=== PATIENT | female | born 1990 | race Caucasian/White ===

== ENCOUNTER 2016-09-05 20:55 | Emergency (ER) | payer SELFPAY ==
[~2016-09-05] VITALS: Ht 177.8 cm; Wt 165.0 kg
[~2016-09-05 20:55] MED LIST: TRAM50 PO; VITA10002 PO; VITA500015 PO
[2016-09-05 20:59] VITALS: BP 162/102; PULSE 95; RESP 18; TEMP 99.2; O2SAT 98
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
[2016-09-05 23:02] VITALS: BP 127/78; PULSE 88; RESP 20; O2SAT 98
[2016-09-05] MEDS ORDERED: IBUP800T23 PO (23:12)
[2016-09-05] MEDS ORDERED: ROBA500T PO (23:12)
[2016-09-05] MEDS ORDERED: TRAM50TA PO (23:12)
[2016-09-05] MEDS ORDERED: CYCLOBENZAPRINE HCL 10 MG TAB PO ONE (23:30)
[2016-09-05] MEDS ORDERED: IBUPROFEN 800 MG TAB PO ONE (23:30)
[2016-09-05 23:49] LABS: BLOOD, URINE NEG (NEG); CALCIUM OXALATE CRYSTALS,URINE RARE /hpf; COMMENT (UR) CULT NOT INDICATED; CULTURE IF INDICATED CULT NOT INDICATED; GLUCOSE,URINE NEG (NEG); KETONE, URINE NEG (NEG); MUCUS URINE FEW /lpf (OCC); NITRITE,URINE NEG (NEG); SQUAMOUS EPITHELIAL CELL URINE <1 /hpf (0-5); URINE COLOR YELLOW (YELLW/STRAW)
--- NOTE | 2016-09-06 01:05 | PD ---
Physical Exam Narrative I, Dr. Hernandez, have reviewed the advance practice practitioner's documentation and am in agreement, met with the patient face to face, made the diagnosis, and the medical decision making was done by me. *My assessment and Findings: Musculoskeletal pain vs. UTI 26yo obese female with left sided abdominal pain and suprapubic pain after minion ride 3 days ago. States the bar restraint caused her pain. Denies any fever, n/v. Pt is on her menstrual period. UA showed 4 RBC. No leukocyte or nitrite. Bedside FAST negative. Pt given ibuprofen and flexeril and reevaluated at bedside. States pain has improved. Bedside FAST negative. Pain is very musculoskeletal. Return precautions given. Data Data Last Documented VS Vital Signs Date Time Temp Pulse Resp B/P Pulse Ox O2 Delivery O2 Flow Rate FiO2 09/06/16 01:15 92 20 137/81 98 09/05/16 23:02 Room Air 09/05/16 20:59 99.2 Orders Urinalysis - C+S If Indicated (09/05/16 22:58) Ibuprofen (Motrin) (09/05/16 23:30) Cyclobenzaprine (Flexeril) (09/05/16 23:30) Ed Poc Ultrasound (09/06/16 ) Labs Laboratory Tests Test 09/05/16 23:20 Urine Color YELLOW Urine Turbidity CLEAR Urine pH 5.0 Urine Specific [place] 1.025 Urine Protein NEG mg/dL Urine Glucose (UA) NEG mg/dL Urine Ketones NEG mg/dL Urine Occult Blood NEG Urine Nitrite NEG Urine Bilirubin NEG Urine Urobilinogen LESS THAN 2.0 MG/DL Urine Leukocyte Esterase NEG Urine RBC 4 /hpf Urine WBC 3 /hpf Urine Squamous Epithelial <1 /hpf Cells Urine Calcium Oxalate Crystals RARE /hpf Urine Mucus FEW /lpf Microscopic Urinalysis Comment CULT NOT INDICATED MDM Supervised Visit with JUS: Yes Procedures Procedure Narrative Emergency department FAST was performed with patient consent. The curvilinear probe was used in the right upper quadrant/Morison's pouch, suprapubic, left upper quadrant/spleenorenal space, epigastric, parasternal long axis. There was no evidence of peritoneal free fluid, or pericardial effusion. Diagnosis Primary Impression: Abdominal wall pain in left lower quadrant Referrals: [facility] Patient Instructions: General Instructions, Abdominal Pain (ED), Musculoskeletal Pain (ED) Departure Forms: Work Release, Enter return to work date: Tests/Procedures Additional Instruction: Rest, hydrate. New Return to normal, gentle activities as tolerated. Take medications as prescribed, as needed. Do not drive while taking muscle relaxants or narcotic pain medications. Return for worsening of symptoms, otherwise follow up with the [facility] as discussed. Return to ED for any urgent or emergent medical condition. Scripts Methocarbamol (Robaxin)500 Mg [id number] Mg PO TID #15 TAB Ref 0 Prov:Eleni Hernandez DO 09/05/16 Tramadol 50 Mg Tab50 Mg PO Q8H PRN (PAIN GREATER THAN 6) #12 TAB Ref 0 Prov:Eleni Hernandez DO 09/05/16 Ibuprofen 800 Mg [id number] Mg PO Q8H PRN (Pain/Inflammation) #20 TAB Ref 0 Prov:Eleni Hernandez DO 09/05/16 Disposition: 01 DISCHARGE HOME Condition: Stable Eleni Hernandez DO Sep 06, 2016 01:05
[2016-09-06 01:15] VITALS: BP 137/81
== END 2016-09-06 01:17 | disposition home or self-care (01) ==
LOC: NEPD 20:55
DX: R10.32 Left lower quadrant pain (principal); X58.XXXA Exposure to other specified factors, initial encounter; Y93.I1 Activity, roller coaster riding; Y92.89 Other specified places as the place of occurrence of the external cause; Y99.8 Other external cause status
CPT/HCPCS: 81001; 99284

== ENCOUNTER 2016-10-21 23:49 | Emergency (ER) | payer SELFPAY ==
[~2016-10-21] VITALS: Ht 177.8 cm; Wt 176.7 kg
[~2016-10-21 23:49] MED LIST changes: +IBUP800T23 PO; +ROBA500T PO; -TRAM50 PO; +TRAM50TA PO; -VITA10002 PO; -VITA500015 PO
[2016-10-21 23:57] VITALS: BP 137/87; PULSE 106; RESP 12; TEMP 98.6; O2SAT 95
[2016-10-22] MEDS ORDERED: oxyCODONE/ACETAMINOPHEN 5 MG/325 MG TAB PO ONE (02:15)
[2016-10-22] MEDS ORDERED: LIDOCAINE HCL 1% 50 ML VIAL INFIL ONE (02:15)
[2016-10-22 02:30] VITALS: BP 131/85; PULSE 92; RESP 18; O2SAT 98
[2016-10-22] MEDS ORDERED: CEPH-460 PO (03:05)
--- NOTE | 2016-10-22 03:05 | PD ---
HPI Chief Complaint: heel swelling Time Seen by Provider: 01:57 Travel History International Travel<30 days: No Contact w/Intl Traveler<30days: No Traveled to known affect area: No History of Present Illness HPI Patient is a 26-year-old female who comes in complaining of a painful swelling to her right heel. She says that she noticed a bite to her ankle a few days ago , she went to an outside hospital yesterday. She was prescribed Bactrim, but did not get it filled until tonight. She has not taken any of the antibiotic yet. She says she feels like it has in getting worse. She denies fever or chills. She noticed some clear drainage from the area today. PFSH Past Medical History Diminished Hearing: No Gastrointestinal Disorders: Yes (PT STATES "UNDIAGNOSED ABD ISSUES") Immunizations Current: Yes Past Surgical History Tonsillectomy: Yes (WITH UVULA) Other Surgery: Yes (UVULA) Social History Alcohol Use: Yes (OCC) Tobacco Use: Yes Substance Use: Yes (MARIJUANA) Allergies-Medications (Allergen,Severity, Reaction): Coded Allergies: Seafood (Verified Allergy, Severe, HIVES, 10/22/16) Reported Meds & Prescriptions Reported Meds & Active Scripts Active Keflex (Cephalexin) 500 Mg Cap 500 Mg PO Q6H 7 Days Tramadol (Tramadol HCl) 50 Mg Tab 50 Mg PO Q8H PRN Review of Systems General / Constitutional: No: Fever, Chills HENT: No: Headaches, Lightheadedness Cardiovascular: No: Chest Pain or Discomfort Respiratory: No: Shortness of Breath Gastrointestinal: No: Nausea Genitourinary: No: Dysuria Musculoskeletal: Positive: Pain Skin: Positive Lesions, No Rash Neurologic: No: Weakness, Dizziness Physical Exam Narrative GENERAL: Awake and alert, in no acute distress. SKIN: Focused skin assessment warm/dry. Abscess to the right heel, with surrounding erythema, small amount of fluctuance. HEAD: Atraumatic. Normocephalic. EYES: Pupils equal and round. No scleral icterus. ENT: Mucous membranes pink and moist. NECK: Trachea midline. No JVD. CARDIOVASCULAR: Regular rate and rhythm. No murmur appreciated. RESPIRATORY: No accessory muscle use. Clear to auscultation. Breath sounds equal bilaterally. MUSCULOSKELETAL: No obvious deformities. No clubbing. No cyanosis. Edema of both feet. NEUROLOGICAL: Awake and alert. No obvious cranial nerve deficits. Motor grossly within normal limits. Normal speech. Data Data Last Documented VS Vital Signs Date Time Temp Pulse Resp B/P Pulse Ox O2 Delivery O2 Flow Rate FiO2 10/22/16 03:23 92 18 10/22/16 02:30 131/85 98 10/21/16 23:57 98.6 Orders Oxycodone-Acetamin 5-325 Mg (Percocet (10/22/16 02:15) Lidocaine 1% Inj (50 Ml) (Xylocaine 1% I (10/22/16 02:15) [facility] Medical Decision Making Medical Screen Exam Complete: Yes Emergency Medical Condition: Yes Differential Diagnosis Cellulitis versus abscess versus insect bite Narrative Course Patient is a 26-year-old female comes in complaining of worsening pain and swelling to her right heel. Exam shows an area of fluctuance and erythema. This was drained with a small amount of pus expressed. Patient has Bactrim, I will add Keflex to the antibiotic regimen. She is advised follow-up with a primary care doctor. Advised to return to the emergency department as needed for any worsening symptoms. Procedures Procedure Narrative INCISION AND DRAINAGE OF ABSCESS: The area was prepped and was sterilely draped. A subcutaneous wheal of 1 % Xylocaine with a total number 8 mL was used to anesthetize the area properly. A number 11 scalpel was used to make a 1 -cm incision across the area of the abscess. The abscess was drained, complex loculations were broken down, and irrigated with normal saline. Sterile dressing applied. Diagnosis Primary Impression: Abscess Patient Instructions: Abscess Incision and Drainage (ED) Additional Instructions: Take all of your antibiotics. Use warm compresses. Keep the area clean and dry. Return to the emergency department as needed for any worsening symptoms. Scripts Cephalexin (Keflex)500 Mg [id number] Mg PO Q6H 7 Days Ref 0 Prov:Deann Oro MD 10/22/16 Disposition: 01 DISCHARGE HOME Condition: Stable Deann Oro MD Oct 22, 2016 03:05
== END 2016-10-22 03:29 | disposition home or self-care (01) ==
LOC: PHED 23:49 → PHEFT 10-22 03:29
DX: L02.611 Cutaneous abscess of right foot (principal); Z72.0 Tobacco use; Z87.19 Personal history of other diseases of the digestive system
CPT/HCPCS: 10060

== ENCOUNTER 2016-12-27 03:30 | Emergency (ER) | payer SELFPAY ==
[~2016-12-27] VITALS: Ht 208.3 cm; Wt 159.0 kg
[~2016-12-27 03:30] MED LIST changes: +CEPH-460 PO; -IBUP800T23 PO; -ROBA500T PO
[2016-12-27 03:34] VITALS: BP 148/98; PULSE 91; RESP 16; TEMP 98.6; O2SAT 91
[2016-12-27] MEDS ORDERED: LIDOCAINE HCL 1% 50 ML VIAL INFIL ONE (04:30)
[2016-12-27] MEDS ORDERED: CEPH-460 PO (04:59)
[2016-12-27] MEDS ORDERED: MUPI2OIN TOPICAL (04:59)
--- NOTE | 2016-12-27 05:00 | PD ---
HPI Chief Complaint: Skin Problem Time Seen by Provider: 04:52 Travel History International Travel<30 days: No Contact w/Intl Traveler<30days: No Traveled to known affect area: No History of Present Illness HPI Patient is a 26-year-old female presenting to emergency department for evaluation of an abscess to her chin. Patient states it started 2 or 3 days ago , getting progressively larger and more painful this evening. He denies any fever, chills, nausea, vomiting. She reports a history of the same. She reports her pain is a 3-10 and states as aching and sore. Patient states it started out as a pimple. PFSH Past Medical History Diminished Hearing: No Gastrointestinal Disorders: Yes (PT STATES "UNDIAGNOSED ABD ISSUES") Genitourinary: Yes (polycystuc ovaries) Respiratory: Yes (asthma) Immunizations Current: Yes Tetanus Vaccination: Unknown Influenza Vaccination: No ?: Not LMP: 12/27/16 : 0 Para: 0 Past Surgical History Tonsillectomy: Yes (WITH UVULA) Other Surgery: Yes (UVULA) Social History Alcohol Use: Yes (SOC) Tobacco Use: No (DENIES) Substance Use: Yes (MARIJUANA) Allergies-Medications (Allergen,Severity, Reaction): Coded Allergies: Fish Containing Products (Unverified Allergy, Severe, HIVES, 12/27/16) Reported Meds & Prescriptions Reported Meds & Active Scripts Active Mupirocin Topical (Mupirocin) 2 % Oint 1 Applic TOPICAL BID Keflex (Cephalexin) 500 Mg Cap 500 Mg PO Q12H Review of Systems Except as stated in HPI: all other systems reviewed are Neg Skin: Positive Lumps, Positive Change in Pigmentation Physical Exam Narrative GENERAL: Obese, well-developed, alert female. Resting comfortably in no acute distress. SKIN: Warm and dry. 3 cm area of fluctuance to submandibular space. Mild/ faint erythema noted. Mildly tender to palpation. HEAD: Normocephalic. EYES: No scleral icterus. No injection or drainage. NECK: Supple, trachea midline. No JVD or lymphadenopathy. CARDIOVASCULAR: Regular rate and rhythm without murmurs, gallops, or rubs. RESPIRATORY: Breath sounds equal bilaterally. No accessory muscle use. GASTROINTESTINAL: Abdomen soft, non-tender, nondistended. MUSCULOSKELETAL: No cyanosis, or edema. BACK: Nontender without obvious deformity. No CVA tenderness. Data Data Last Documented VS Vital Signs Date Time Temp Pulse Resp B/P (MAP) Pulse Ox O2 Delivery O2 Flow Rate FiO2 12/27/16 05:01 12/27/16 03:34 98.6 91 16 91 Room Air Orders Orders Lidocaine 1% Inj (50 Ml) (Xylocaine 1% I (12/27/16 04:30) Wound Culture And Gram Stain (12/27/16 04:30) MDM Medical Decision Making Medical Screen Exam Complete: Yes Emergency Medical Condition: Yes Interpretation(s) Vital Signs Date Time Temp Pulse Resp B/P (MAP) Pulse Ox O2 Delivery O2 Flow Rate FiO2 12/27/16 03:34 98.6 91 16 148/98 (115) 91 Room Air Differential Diagnosis Abscess versus cellulitis versus hidradenitis versus other Narrative Course Patient presented for evaluation of an abscess to her neck/submandibular space. Please see procedure report for I&D. Patient's vital signs are stable, she tolerated procedure well. Wound culture ordered and sent. Patient was given verbal wound care instructions. She was vice return to emergency department in 48 hours to have packing removed and wound reevaluated. She was educated on the signs and symptoms of infection. She was advised to return to her chart immediately for any new or worsening symptoms. Patient verbalized understanding of these instructions. Patient is stable for discharge. Patient requested Diflucan as she gets a yeast infection when she takes antibiotics. Diagnosis Primary Impression: Abscess of submandibular region Additional Impression: Encounter for incision and drainage procedure Referrals: Primary Care Physician Patient Instructions: Abscess (ED), Abscess Incision and Drainage (DC), General Instructions Additional Instructions: Return to emergency department in 48 hours to have packing removed Return to emergency department immediately for any new or worsening symptoms Complete full course of antibiotics as prescribed Keep incision covered, apply topical antibiotic ointment as prescribed, do not pick at incision or on skin around the incision. Med/Other Pt SpecificInfo: Prescription(s) given Scripts Fluconazole (Diflucan) 150 Mg Tab 150 MG PO ONCE for Infection, #1 TAB 0 Refills Prov: Carolee Souza 12/27/16 Mupirocin Topical (Mupirocin Topical) 2 % Oint 1 APPLIC TOPICAL BID for Mgmt Bacterial Infection, #22 GM 0 Refills Prov: Carolee Souza 12/27/16 Cephalexin (Keflex) 500 Mg Cap 500 MG PO Q12H for Infection, #20 CAP 0 Refills Prov: Carolee Souza 12/27/16 Disposition: 01 DISCHARGE HOME Condition: Stable Carolee Souza Dec 27, 2016 05:00
[2016-12-27] MEDS ORDERED: DIFL150T PO (05:09)
== END 2016-12-27 05:18 | disposition home or self-care (01) ==
LOC: NEPD 03:30
DX: K12.2 Cellulitis and abscess of mouth (principal); A49.01 Methicillin susceptible Staphylococcus aureus infection, unspecified site; J45.909 Unspecified asthma, uncomplicated
CPT/HCPCS: 10061; 86403; 87070; 87147; 87186

== ENCOUNTER 2016-12-29 08:49 | Emergency (ER) | payer SELFPAY ==
[~2016-12-29] VITALS: Ht 177.8 cm; Wt 162.0 kg
[~2016-12-29 08:49] MED LIST changes: +DIFL150T PO; +MUPI2OIN TOPICAL
[2016-12-29 08:52] VITALS: BP 160/97; PULSE 82; RESP 13; TEMP 99.1; O2SAT 99
--- NOTE | 2016-12-29 09:34 | PD ---
HPI Chief Complaint: Wound/Suture/Staple Re-Check Time Seen by Provider: 09:30 Travel History International Travel<30 days: No Contact w/Intl Traveler<30days: No Traveled to known affect area: No History of Present Illness HPI 26-year-old female presents the emergency department status post drainage of an abscess to the lower chin 2 days prior. Patient is here for wound check and packing removal. Patient states she feels improved and the swelling is improved as well. Patient is currently on Keflex by mouth. She states it's had some moderate drainage over the past 2 days. She denies fever, chills, and pain is improving. She is allergic to fish. PFSH Past Medical History Diminished Hearing: No Gastrointestinal Disorders: Yes (PT STATES "UNDIAGNOSED ABD ISSUES") Genitourinary: Yes (polycystuc ovaries) Respiratory: Yes (asthma) Immunizations Current: Yes Tetanus Vaccination: Unknown ?: Not : 0 Para: 0 Past Surgical History Tonsillectomy: Yes (WITH UVULA) Other Surgery: Yes (UVULA) Social History Alcohol Use: Yes (SOC) Tobacco Use: No (DENIES) Substance Use: Yes (MARIJUANA) Allergies-Medications (Allergen,Severity, Reaction): Coded Allergies: Fish Containing Products (Unverified Allergy, Severe, HIVES, 12/27/16) Reported Meds & Prescriptions Reported Meds & Active Scripts Active Diflucan (Fluconazole) 150 Mg Tab 150 Mg PO ONCE Mupirocin Topical (Mupirocin) 2 % Oint 1 Applic TOPICAL BID Keflex (Cephalexin) 500 Mg Cap 500 Mg PO Q12H Review of Systems Except as stated in HPI: all other systems reviewed are Neg General / Constitutional: No: Fever Eyes: No: Visual changes HENT: No: Headaches Cardiovascular: No: Chest Pain or Discomfort Respiratory: No: Shortness of Breath Gastrointestinal: No: Abdominal Pain Genitourinary: No: Dysuria Musculoskeletal: No: Pain Skin: No Rash Neurologic: No: Weakness Psychiatric: No: Depression Endocrine: No: Polydipsia Hematologic/Lymphatic: No: Easy Bruising Physical Exam Narrative GENERAL: Patient appears distress. SKIN: Warm and dry. Normal color. Normal turgor. Patient has a draining open abscess to the anterior lower arellano without significant erythema, but continued induration which patient states is improving. Packing is removed without difficulty. HEAD: Atraumatic. Normocephalic. EYES: Pupils equal and round. No scleral icterus. No injection or drainage. ENT: No nasal bleeding or discharge. Mucous membranes pink and moist. Pharynx is clear. Airway is patent. NECK: Trachea midline. Supple without significant lymphadenopathy or Navjot's angina. CARDIOVASCULAR: Regular rate and rhythm. RESPIRATORY: No accessory muscle use. Clear to auscultation. Breath sounds equal bilaterally. MUSCULOSKELETAL: Extremities without clubbing, cyanosis, or edema. No obvious deformities. NEUROLOGICAL: Awake and alert. No obvious cranial nerve deficits. Motor grossly within normal limits. Five out of 5 muscle strength in the arms and legs. Normal speech. PSYCHIATRIC: Appropriate mood and affect; insight and judgment normal. Data Data Last Documented VS Vital Signs Date Time Temp Pulse Resp B/P (MAP) Pulse Ox O2 Delivery O2 Flow Rate FiO2 12/29/16 08:52 99.1 82 13 160/97 (118) 99 MDM Medical Decision Making Medical Screen Exam Complete: Yes Emergency Medical Condition: Yes Differential Diagnosis Neck abscess. Wound check. Packing removal. Narrative Course Packing is removed without difficulty. No further packing is felt to be necessary at this time. Dressing is placed. Patient to continue antibiotics as previously prescribed. Patient follow-up only if symptoms do not continue to improve or worsen. Diagnosis Primary Impression: Encounter for abscess packing removal Patient Instructions: General Instructions Additional Instructions: Packing is removed without difficulty. No further packing is felt to be necessary at this time. Dressing is placed. Patient to continue antibiotics as previously prescribed. Patient follow-up only if symptoms do not continue to improve or worsen. Med/Other Pt SpecificInfo: Wound Care Disposition: DISCHARGE HOME Condition: Stable Carter Gonzalez Dec 29, 2016 09:34
== END 2016-12-29 10:22 | disposition home or self-care (01) ==
LOC: NEPK 08:49
DX: L02.01 Cutaneous abscess of face (principal); Z48.00 Encounter for change or removal of nonsurgical wound dressing
CPT/HCPCS: 99281